=== PATIENT | female | born 1970 | race African-American/Black ===

== ENCOUNTER 2019-09-23 18:57 | Emergency (ER) | payer BC ==
[~2019-09-23] VITALS: Ht 165.1 cm; Wt 90.7 kg
[~2019-09-23 18:57] MED LIST: NAPROSYN500 MG PO; TOPROL XL25 MG PO
[2019-09-23] MEDS ORDERED: COZAAR 25 MG TA25 MG (19:35)
[2019-09-23] MEDS ORDERED: NORVASC 2.5 MG2.5 M1 (19:35)
[2019-09-23] MEDS ORDERED: IBUPROFEN 800800 M1 PO (21:24)
[2019-09-23] MEDS ORDERED: NORFLEX100 MG PO (21:24)
[2019-09-23 21:38] VITALS: BP 130/95
--- NOTE | 2019-09-24 10:48 | EKG ---
[place] [address] [facility] [place] [address] ELECTROCARDIOGRAM REPORT Name: RONNY HEBERT Room #: DEP LJ Rodriguez#: [id number] Admission: 09/23/19 Attend Phys: Discharge: 09/23/19 Date of : 74 Report #: [id number] THIS REPORT FOR: //name// [facility] ED Test Date: 2019-09-23 Test Time: 20:32:48 Pat Name: RONNY HEBERT Department: Room: Gender: F Surgical Oncologist: APRIL العراقي : 1970 Requested By: Kaetlyn Puente Order Number: [id number] MD: Pipe Coronado Measurements Intervals [place] Rate: 87 P: 24 VA: 167 QRS: -18 QRSD: 146 T: 131 QT: 409 QTc: 492 Interpretive Statements Sinus rhythm Left bundle branch block No previous ECG available for comparison Electronically Signed On 09-24-2019 10:48:35 [employer]RATION ENGINE[employer] by Pipe Coronado [email or web address] <ELECTRONICALLY SIGNED> By: Pipe Coronado MD 09/24/19 1048 31 31 MD RIAN Andrade
== END 2019-09-23 21:33 | disposition home or self-care (01) ==
LOC: ER 18:57
DX: S60.512A Abrasion of left hand, initial encounter (principal); M25.531 Pain in right wrist; R07.89 Other chest pain; M54.2 Cervicalgia; I10 Essential (primary) hypertension; Z79.899 Other long term (current) drug therapy; Z90.89 Acquired absence of other organs; V49.88XA Car occupant (driver) (passenger) injured in other specified transport accidents, initial encounter; Y93.89 Activity, other specified; Y92.413 State road as the place of occurrence of the external cause; Y99.9 Unspecified external cause status